=== PATIENT | female | born 1980 | race Caucasian/White ===

== ENCOUNTER 2023-03-10 16:49 | Observation (INO) ==
[~2023-03-10 16:49] MED LIST: Acetaminophen IV 1 GM/100ML 1,000 MG/100 ML BAG IV ONE; Buffered Lidocaine 1% SYRIN 1 ml INTRADERM ONE; Bupivacaine 0.25% EPI 200,000 30 ML SDV ONE; Dexamethasone IV 4 MG/ML VIAL 1 ml VIAL ONE; Lactated Ringers 1000 ml BAG 1,000 ML IV SCH; Lidocaine 2% PF 5 ML VIAL ONE; Midazolam 2 mg/2 ml VIAL 1 mg/ml 2 ml VIAL (2 mg) ONE; Naloxone 0.4 mg VIAL 0.4 mg/ml 1 ml VIAL IV PRN; Ondansetron 4 mg VIAL 2 MG/ML 2 ml VIAL ONE; Propofol 10 MG/ML 20 ML BTL ONE; Rocuronium 50 mg VIAL 10 mg/ml 5 ml VIAL (50 mg) ONE; ceFAZolin 2 GM PREMIX 2 GM/50 ML BAG ONE; fentaNYL 100 mcg/2 ml 50 MCG/ML VIAL IV PRN; fentaNYL 100 mcg/2 ml 50 MCG/ML VIAL ONE
[2023-03-10] MEDS ORDERED: HYDROcodone/ACET. 7.5/325 LIQ 15 ML UDC PO PRN (16:55)
[2023-03-10] MEDS ORDERED: Ondansetron 4 mg VIAL 2 MG/ML 2 ml VIAL IV PRN (16:57)
[2023-03-10] MEDS ORDERED: fentaNYL 100 mcg/2 ml 50 MCG/ML VIAL ONE (17:13)
[2023-03-10] MEDS ORDERED: Prochlorperazine 5 mg/ml 2 ml VIAL (10 mg) IV ONE (18:03)
[2023-03-10] MEDS ORDERED: Scopolamine 1 mg/72hr PATCH ONE (18:05)
[2023-03-10] MEDS ORDERED: Prochlorperazine 5 mg/ml 2 ml VIAL (10 mg) ONE (18:06)
[2023-03-10] MEDS ORDERED: Scopolamine 1 mg/72hr PATCH TRANSDERM SCH (19:00)
[2023-03-10] MEDS: HYDROmorphone 0.5 MG/0.5 ML SYRINGE IV SLOW PU PRN (20:25)
[2023-03-10] MEDS: Heparin 5000 UNITS/ML 1 mL VIAL SUBCUT SCH (22:32)
[2023-03-11] MEDS: Lactated Ringers 1000 ml BAG 1,000 ML IV SCH ×2 (02:47→16:42)
[2023-03-11] MEDS: Heparin 5000 UNITS/ML 1 mL VIAL SUBCUT SCH ×3 (05:56→22:21)
[2023-03-11] MEDS ORDERED: Acetaminophen IV 1 GM/100ML 1,000 MG/100 ML BAG IV PRN (08:34)
[2023-03-11] MEDS: HYDROmorphone 0.5 MG/0.5 ML SYRINGE IV SLOW PU PRN (19:48)
[2023-03-12] MEDS: Heparin 5000 UNITS/ML 1 mL VIAL SUBCUT SCH ×2 (04:53→04:59)
[2023-03-12] MEDS: Lactated Ringers 1000 ml BAG 1,000 ML IV SCH (06:10)
[2023-03-12 06:41] VITALS: BP 113/73
== END 2023-03-12 10:00 | disposition home or self-care (01) ==
PROVIDERS: ADMIT Surgery; ATTEND Surgery